=== PATIENT | male | born 1960 | race Caucasian/White ===

== ENCOUNTER 2019-04-11 09:04 | Emergency (ER) | payer OTHER ==
[~2019-04-11] VITALS: Ht 165.1 cm; Wt 70.3 kg
[~2019-04-11 09:04] MED LIST: CODE1TAB37 PO
== END 2019-04-11 10:44 | disposition home or self-care (01) ==
LOC: ER 09:04
DX: R21 Rash and other nonspecific skin eruption (principal)

== ENCOUNTER 2021-02-03 08:00 | Outpatient (CLI) | payer OTHER | END 2021-02-03 08:30 | disposition home or self-care (01) | LOC: PPH VACUNA 08:00 | DX: Z23 Encounter for immunization (principal) ==